=== PATIENT | male | born 1940 | race American Indian/Alaskan Native ===

== ENCOUNTER 2021-11-11 13:28 | Outpatient (CLI) | payer MEDICARE, OTHER ==
--- NOTE | 2021-11-11 15:30 | XRay Report ---
RIGHT SHOULDER 3 VIEWS INDICATION: ACUTE COUGH. COMPARISON: No relevant prior imaging study available. FINDINGS: No acute skeletal abnormality. There is mild arthritic change at the right AC and glenohumeral joints . IMPRESSION: 1. No acute findings. CHEST PA AND LATERAL VIEWS INDICATION: ACUTE COUGH. COMPARISON: None. FINDINGS: Support devices: None. Heart: Within normal limits. Lungs/Pleura: No acute pulmonary or pleural findings. IMPRESSION: 1. No acute findings. Signer Name: Brayan Otto MD Signed: 11/11/2021 3:26 PM Workstation Name: [email or web address]
== END 2021-11-11 13:29 | disposition home or self-care (01) ==
LOC: XRAY 13:28
PROVIDERS: ATTEND Internal Medicine
DX: M19.011 Primary osteoarthritis, right shoulder (principal); R05.1 Acute cough
CPT/HCPCS: 71046

== ENCOUNTER 2022-04-28 10:10 | Outpatient (CLI) | payer MEDICARE, OTHER ==
[2022-04-28 12:45] LABS: Basophils % (Auto) 0.3 % (0.0-1.8); Eosinophils # (Auto) 0.2 K/mm3 (0.0-0.4); Eosinophils % (Auto) 4.7 % (0.0-4.3); Hematocrit 43.8 % (35.5-45.6); Hemoglobin 14.3 gm/dl (11.8-15.2); Lymphocytes # (Auto) 0.8 K/mm3 (1.2-5.4); Lymphocytes % (Auto) 17.9 % (13.4-35.0); Mean Corpuscular HGB Conc 33 % (32-34); Mean Corpuscular Volume 84 fl (84-94); Monocytes # (Auto) 0.5 K/mm3 (0.0-0.8); Platelet Count 123 K/mm3 (140-440); Red Blood Count 5.22 M/mm3 (3.65-5.03)
[2022-04-28 12:53] LABS: Albumin 4.4 g/dL (3.9-5); Calcium 9.6 mg/dL (8.4-10.2); Chol/HDL Ratio 4.1 %
[2022-04-28 16:02] LABS: Creatinine,Urine 178.3 mg/dL (0.1-20.0); Protein/Creatinine Ratio,Urine 0.1
== END 2022-04-28 10:11 | disposition home or self-care (01) ==
LOC: LABHHL 10:10
PROVIDERS: ATTEND Internal Medicine
DX: E11.22 Type 2 diabetes mellitus with diabetic chronic kidney disease (principal); E55.9 Vitamin D deficiency, unspecified; E78.5 Hyperlipidemia, unspecified; N18.9 Chronic kidney disease, unspecified; R53.83 Other fatigue; Z00.00 Encounter for general adult medical examination without abnormal findings
CPT/HCPCS: 36415; 80053; 80061; 82570; 83036; 84156; 84443; 85025